=== PATIENT | male | born 1935 | race African-American/Black ===

== ENCOUNTER 2017-07-17 17:18 | Emergency (ER) | payer MEDICARE ==
[~2017-07-17] VITALS: Ht 175.3 cm; Wt 81.6 kg
[2017-07-17 17:31] VITALS: Ht 175.3 cm; Wt 81.6 kg
[2017-07-17 19:33] LABS: BASOPHIL % 0.2 % (0-2); PLATELET COUNT 141 x10^3mcL (130-400)
[2017-07-17 19:37] LABS: RED CELL DISTRIBUTION WIDTH 17.4 % (11.5-14.5)
[2017-07-17 19:42] LABS: CARBON DIOXIDE 26.4 mmol/L (21-32); CHLORIDE SERUM 102 mmol/L (98-107); CREATININE SERUM 1.4 mg/dL (0.7-1.3); GLUCOSE SERUM 116 mg/dL (74-106); POTASSIUM SERUM 4.1 mmol/L (3.5-5.1); SODIUM SERUM 138 mmol/L (136-145)
[2017-07-17 19:53] LABS: ALBUMIN 3.5 g/dL (3.4-5.0); ALKALINE PHOSPHATASE 64 U/L (46-116); ALT/SGPT 21 U/L (16-63); AST/SGOT 13 U/L (15-37); BILIRUBIN TOTAL 0.3 mg/dL (0.20-1.00); TOTAL PROTEIN, SERUM 7.8 g/dL (6.4-8.2)
[2017-07-17 20:11] LABS: CK-MB 1.1 ng/mL (0-3.6)
[2017-07-17 23:44] VITALS: BP 139/87
== END 2017-07-17 23:44 | disposition short-term general hospital (02) ==
LOC: ED 17:18
PROVIDERS: Emergency Medicine
DX: R55 Syncope and collapse (principal); E11.9 Type 2 diabetes mellitus without complications; I48.91 Unspecified atrial fibrillation; G20 Parkinson's disease
CPT/HCPCS: 36415; 36600; 83880; Q9967